=== PATIENT | female | born 1995 | race Caucasian/White ===

== ENCOUNTER 2019-01-17 12:08 | Emergency (ER) | payer BC ==
[2019-01-17 12:37] VITALS: BP 107/65
--- NOTE | 2019-01-17 12:43 | UC ---
Throat Pain/Nasal Luis Antonio HPI - HPI Summary HPI Summary: 23 year old female with PMH + for depression presents with throat pain, vomiting last night, headache. minimal pain with swallowing. Concerned at BF tested + for strep 2 days ago. Denies fever, chillls. no neck stiffness. - History of Current Complaint Chief Complaint: UCGeneralIllness Stated Complaint: SORE THROAT NAUSEA HEADACHE Time Seen by Provider: 01/17/19 12:43 Hx Obtained From: Patient Severity: Mild Pain Intensity: 2 Pain Scale Used: 0-10 Numeric - Allergies/Home Medications Allergies/Adverse Reactions: Allergies Allergy/AdvReac Type Severity Reaction Status Date / Time No Known Allergies Allergy Verified 01/25/15 16:48 Home Medications: Home Medications Bupropion XL* [Wellbutrin XL *] 150 mg PO DAILY 01/17/19 [History Confirmed 07/03] FLUoxetine CAP* [Prozac CAP*] 20 mg PO DAILY 01/17/19 [History Confirmed ] PMH/Surg Hx/FS Hx/Imm Hx Previously Healthy: Yes - depression - Surgical History Surgical History: None Surgery Procedure, Year, and Place: wisdom teeth - Family History Known Family History: Positive: Non-Contributory - Social History Alcohol Use: Weekly Alcohol Amount: 2-5 drinks Substance Use Type: Marijuana Substance Use Comment - Amount & Last Used: occasional, social marijuana Smoking Status (MU): Current Some Day Smoker - Immunization History Most Recent Influenza Vaccination: December, Most Recent Tetanus Shot: up to date Most Recent Pneumonia Vaccination: none Review of Systems All Other Systems Reviewed And Are Negative: Yes Constitutional: Positive: Fatigue ENT: Positive: Sore Throat Gastrointestinal: Positive: Vomiting, Nausea Is Patient Immunocompromised?: No Physical Exam Triage Information Reviewed: Yes Appearance: Well-Appearing, No Pain Distress, Well-Nourished Vital Signs: Initial Vital Signs Temp 97.9 F 01/17/19 12:32 Pulse 63 01/17/19 12:32 Resp 18 01/17/19 12:32 BP 107/65 01/17/19 12:32 Pulse Ox 99 01/17/19 12:32 Vital Signs Reviewed: Yes Eyes: Positive: Conjunctiva Clear ENT: Positive: Hearing grossly normal, Pharynx normal, TMs normal, Uvula midline. Negative: TM bulging, TM red, Tonsillar swelling, Tonsillar exudate, Sinus tenderness Neck: Positive: Supple, Nontender, No Lymphadenopathy. Negative: Nuchal Rigidity, Enlarged Nodes @ Respiratory: Positive: Chest non-tender, Lungs clear, Normal breath sounds, No respiratory distress, No accessory muscle use. Negative: Crackles, Rhonchi, Stridor, Wheezing Cardiovascular: Positive: RRR, No Murmur Neurological Exam: Normal Psychological Exam: Normal Skin Exam: Normal Throat Pain/Nasal Course/Dx - Course Course Of Treatment: Rapid Strep Negative - Antibiotics given, to use if symptoms increased within 24-48 hours. Discussed symptoms likely due to vomiting last night rather than strep, wait at least 24 hours to see if symptoms worsen. - Increase fluid intake - Continue to monitor symptoms- May start antibiotics if fever, sore throat over next 24-48 hours - GO to ER with fever > 102, neck stiffness, difficulty swallowing - FOllow up with On license of [facility] if no improvement in 2-3 days - Differential Dx/Diagnosis Provider Diagnosis: Pharyngitis Discharge ED - Sign-Out/Discharge Documenting (check all that apply): Patient Departure All imaging exams completed and their final reports reviewed: No Studies - Discharge Plan Condition: Good Disposition: HOME Prescriptions: Amoxicillin PO (*) [Amoxicillin 875 MG (*)] 875 mg PO BID #14 tab Patient Education Materials: Pharyngitis (ED) Referrals: [facility] [Outside] No Primary Care Phys,NOPCP [Primary Care Provider] - Additional Instructions: - Increase fluid intake - Continue to monitor symptoms- May start antibiotics if fever, sore throat over next 24-48 hours - GO to ER with fever > 102, neck stiffness, difficulty swallowing - FOllow up with On license of [facility] if no improvement in 2-3 days - Billing Disposition and Condition Condition: GOOD Disposition: Home
== END 2019-01-17 13:05 | disposition home or self-care (01) ==
LOC: UCEAST 12:08
DX: J02.9 Acute pharyngitis, unspecified (principal); F32.9 Major depressive disorder, single episode, unspecified; F17.290 Nicotine dependence, other tobacco product, uncomplicated; Z79.899 Other long term (current) drug therapy
CPT/HCPCS: 87651; 99212; G0463

== ENCOUNTER 2019-02-04 13:35 | Emergency (ER) | payer BC ==
[2019-02-04 15:36] VITALS: BP 134/83
--- NOTE | 2019-02-04 15:56 | UC ---
Throat Pain/Nasal Luis Antonio HPI - HPI Summary HPI Summary: The patient is a 23-year-old female with sore throat, cough and nasal congestion 4-5 days. She has felt feverish at times and has had chills. She denies any chest pain or shortness of breath. She has not had any nausea vomiting or diarrhea. She states that her boyfriend was diagnosed with strep throat 2 weeks ago. - History of Current Complaint Chief Complaint: UCGeneralIllness Stated Complaint: COUGH Time Seen by Provider: 02/04/19 15:32 Hx Obtained From: Patient Hx Last Menstrual Period: doesn't get - mirena IUD Onset/Duration: Gradual Onset Severity: Mild Pain Intensity: 2 Pain Scale Used: 0-10 Numeric Cough: Nonproductive Associated Signs & Symptoms: Positive: Fever - soledad - Epiglottits Risk Factors Epiglottis Risk Factors: Negative - Allergies/Home Medications Allergies/Adverse Reactions: Allergies Allergy/AdvReac Type Severity Reaction Status Date / Time No Known Allergies Allergy Verified 02/04/19 15:36 Home Medications: Home Medications guaiFENesin [Mucinex] 600 mg PO 02/04/19 [History] PMH/Surg Hx/FS Hx/Imm Hx Previously Healthy: Yes - Surgical History Surgical History: Yes Surgery Procedure, Year, and Place: wisdom teeth - Family History Known Family History: Positive: Non-Contributory - Social History Alcohol Use: Weekly Alcohol Amount: 2-5 drinks Substance Use Type: Marijuana Substance Use Comment - Amount & Last Used: occasional, social marijuana Smoking Status (MU): Current Some Day Smoker - Immunization History Most Recent Influenza Vaccination: December, Most Recent Tetanus Shot: up to date Most Recent Pneumonia Vaccination: none Review of Systems All Other Systems Reviewed And Are Negative: Yes Constitutional: Positive: Fever - soledad, Chills Skin: Positive: Negative Eyes: Positive: Negative ENT: Positive: Sore Throat, Sinus Congestion Respiratory: Positive: Cough Cardiovascular: Positive: Negative Gastrointestinal: Positive: Negative Genitourinary: Positive: Negative Motor: Positive: Negative Neurovascular: Positive: Negative Musculoskeletal: Positive: Negative Neurological: Positive: Negative Psychological: Positive: Negative Physical Exam Triage Information Reviewed: Yes Appearance: Well-Appearing, No Pain Distress, Well-Nourished Vital Signs: Initial Vital Signs Temp 97.6 F 02/04/19 15:26 Pulse 76 02/04/19 15:26 Resp 16 10/21/19 15:26 BP 134/83 02/04/19 15:26 Pulse Ox 98 02/04/19 15:26 Vital Signs Reviewed: Yes Eyes: Positive: Conjunctiva Clear ENT: Positive: Hearing grossly normal, Pharyngeal erythema, Nasal congestion, TMs normal, Tonsillar swelling, Uvula midline Dental Exam: Normal Neck: Positive: Supple, Nontender, Enlarged Nodes @ - minimal ant cer Respiratory: Positive: Lungs clear, Normal breath sounds, No respiratory distress, No accessory muscle use Cardiovascular: Positive: RRR, No Murmur Musculoskeletal: Positive: ROM Intact, No Edema Neurological: Positive: Alert Psychological Exam: Normal Skin Exam: Normal Diagnostics - Laboratory Lab Results: strep (-) Throat Pain/Nasal Course/Dx - Differential Dx/Diagnosis Provider Diagnosis: Viral URI with cough Discharge ED - Sign-Out/Discharge Documenting (check all that apply): Patient Departure All imaging exams completed and their final reports reviewed: No Studies - Discharge Plan Condition: Stable Disposition: HOME Prescriptions: Benzonatate CAP* [Tessalon CAP*] 100 - 200 mg PO TID PRN #[id number] cap PRN Reason: Cough Patient Education Materials: Upper Respiratory Infection (ED) Forms: *School Release Referrals: [facility] [Outside] - If Needed Additional Instructions: strep test negative recheck for new or worsening symptoms or if not better in 4-5 days - Billing Disposition and Condition Condition: STABLE Disposition: Home
== END 2019-02-04 16:25 | disposition home or self-care (01) ==
LOC: UCEAST 13:35
DX: J06.9 Acute upper respiratory infection, unspecified (principal); R05 Cough; F17.200 Nicotine dependence, unspecified, uncomplicated
CPT/HCPCS: 87651; 99212; G0463